=== PATIENT | male | born 1950 ===

== ENCOUNTER 2019-12-02 07:43 | Day surgery (SDC) | payer OTHER ==
[~2019-12-02 07:43] MED LIST: ALTACE10 MG PO; METFORMIN HCL500 M2 PO; METOPROLOL ER-1 EAC1; MICROZIDE12.5 MG; ZOLOFT25 MG PO
[2019-12-02] MEDS ORDERED: TYLENOL ARTHRI650 MG PO (13:31)
[2019-12-02] MEDS ORDERED: NEURONTIN300 MG PO (13:31)
[2019-12-02] MEDS ORDERED: ULTRAM50 MG PO (13:31)
[2019-12-02] MEDS ORDERED: MIRALAX17 GM PO (13:31)
== END 2019-12-02 17:55 | disposition home or self-care (01) ==
LOC: CIR.AMB 07:43
DX: K42.0 Umbilical hernia with obstruction, without gangrene (principal); K43.6 Other and unspecified ventral hernia with obstruction, without gangrene

== ENCOUNTER 2021-06-20 13:30 | Outpatient (CLI) | payer OTHER ==
[~2021-06-20 13:30] MED LIST changes: +MIRALAX17 GM PO; +NEURONTIN300 MG PO; +TYLENOL ARTHRI650 MG PO; +ULTRAM50 MG PO
== END 2021-06-20 14:00 | disposition home or self-care (01) ==
LOC: PPH VACUNA 13:30
PROVIDERS: ATTEND Emergency Medicine Pediatric Emergency Medicine
DX: Z23 Encounter for immunization (principal)